=== PATIENT | male | born 1965 | race Caucasian/White ===

== ENCOUNTER → 2017-07-23 | Outpatient (CLI) | payer BC ==
[~2017-07-23] MED LIST: BISA-16 PO; DOCU100C31 PO; FLUT0.15 NAE; MULT-506 PO; POLY335019 PO
[2017-07-23 10:39] LABS: BLOOD UREA NITROGEN 15 mg/dl (7-18); CALCIUM 8.7 mg/dl (8.5-10.1); CARBON DIOXIDE 31 mmol/L (21-32); CREATININE 0.97 mg/dl (0.60-1.40); GLUCOSE 129 mg/dl (70-99); POTASSIUM 4.5 mmol/L (3.5-5.1); SODIUM 142 mmol/L (136-145)
[2017-07-23 11:08] LABS: BASO % 0.2 %; BASO ABS # 0.01 K/uL (0-0.2); EOS % 2.5 %; EOS ABS # 0.13 K/uL (0-0.5); HEMOGLOBIN 14.1 g/dL (14.0-18.0); IG# 0.01 K/uL (0.00-0.02); LYMPH % 20.2 %; LYMPH ABS # 1.05 K/uL (1.2-3.4); MEAN CELL VOLUME 86.1 fL (80-100); MEAN CORPUSCULAR HEMOGLOBIN 29.6 pg (25-34); MEAN CORPUSCULAR HGB CONC 34.4 g/dl (32-36); MEAN PLATELET VOLUME 10.2 fL (7.4-10.4); MONO % 7.9 %; MONO ABS # 0.41 K/uL (0.11-0.59); NEUT ABS # 3.59 K/uL (1.4-6.5); PLATELET COUNT 252 K/uL (130-400); RED CELL DISTRIBUTION WIDTH CV 12.8 % (11.5-14.5); RED CELL DISTRIBUTION WIDTH SD 40.7 fL (36.4-46.3)
== END | disposition home or self-care (01) ==
LOC: C.LAB 09:19
PROVIDERS: ATTEND Neurological Surgery
DX: M48.02 Spinal stenosis, cervical region (principal); Z88.6 Allergy status to analgesic agent

== ENCOUNTER → 2017-07-25 | Outpatient (CLI) | payer BC ==
[2017-07-25 13:26] LABS: HEMOGLOBIN A1C 6.1 % (4.5-5.6)
== END | disposition home or self-care (01) ==
LOC: C.LABBFT 09:15
PROVIDERS: ATTEND Physician Assistant Medical
DX: R73.01 Impaired fasting glucose (principal)